=== PATIENT | male | born 1985 | race Caucasian/White ===

== ENCOUNTER 2024-01-20 12:55 | Inpatient (IN) ==
[2024-01-20 14:00] LABS: Basophils # (auto) 0.04 K/uL (0.00-0.20); Basophils % (auto) 0.6 %; Eosinophils # (auto) 0.03 K/uL (0.00-0.50); Eosinophils % (auto) 0.5 %; Hematocrit (blood only) 35.4 % (42.0-52.0); Hemoglobin 12.5 g/dl (14.0-18.0); Immature Granulocytes # (auto) 0.03 K/uL (0.01-0.20); Immature Granulocytes % (auto) 0.5 %; Lymphocytes # (auto) 1.15 K/uL (1.20-3.40); Lymphocytes % (auto) 17.3 %; Mean Corpuscular Hemoglobin 29.8 pg (25.0-34.0); Mean Corpuscular Hgb Conc 35.3 g/dL (32.0-36.0); Mean Corpuscular Volume 84.3 fL (80.0-100.0); Mean Platelet Volume 9.2 fL (9.4-12.4); Monocytes # (auto) 0.86 K/uL (0.11-0.59); Neutrophils # (auto) 4.53 K/uL (1.40-6.50); Neutrophils % (auto) 68.1 %; Platelet Count 205 K/uL (130-400); RDW Coefficient of Variation 11.9 % (11.5-14.5); White Blood Count 6.64 K/ul (4.8-10.8)
[2024-01-20 14:08] LABS: Albumin Globulin Ratio 1.9 (0.9-2); Albumin Level 4.9 gm/dl (3.4-5.0); BUN Creatinine Ratio 7.1 (10-20); Calcium 9.9 mg/dl (8.6-10.3); Creatinine Clr Calc Pharmacy 89.5 ml/min; Est GFR (African American) 95.7 ml/min; Est GFR (Non-African American) 82.6 ml/min; Globulin 2.6 gm/dl (2.5-4.0); Potassium 3.5 mmol/L (3.5-5.1); Total Protein 7.5 gm/dl (6.0-8.3)
--- NOTE | 2024-01-20 14:20 | Emergency Department Note ---
Impression & Plan Seizure, ETOH abuse, Benzodiazepine dependence, Fever ED Provider Note NAME: SHAHRIAR LABOY AGE: 38 SEX: M : 1985 ARRIVES VIA: Walk-In INFORMANT: Patient ED PROVIDER(S): Ward Cole DO CHIEF COMPLAINT: Seizure HPI: Patient is a 38-year-old male who presents to the ER for seizure. Patient notes that he used benzos as well as alcohol. He was drinking about 10 beers a day. He notes he is only taken about 4 mg of Klonopin but per report from outside facility notes he was using 6-8 a day. He has been at [facility] for the past week. He had a witnessed seizure. They brought him in. He was titrating down on benzodiazepines when this occurred. He admits to mild neck soreness and a little bit of a headache. No cough or congestion. No chest pain or shortness of breath. No belly pain. No nausea, vomiting, or diarrhea. No dysuria but admits to urgency and frequency. ADDITIONAL HISTORY OBTAINED: Per HPI Chronic Medical/Social Conditions Affecting Care: Per HPI PAST MEDICAL HISTORY:See Below PAST SURGICAL HISTORY:See Below FAMILY HISTORY:See Below SOCIAL HISTORY:See Below HOME MEDICATIONS:See Below ALLERGIES:See Below VITALS:See Below PHYSICAL EXAMINATION: GENERAL: Sitting up in bed, alert, well appearing, well nourished, no distress, non-toxic EYE EXAM: normal conjunctiva. OROPHARYNX: no exudate, no erythema, lips, buccal mucosa, and tongue normal and mucous membranes are moist NECK: supple, no nuchal rigidity, no adenopathy, non-tender LUNGS: Clear to auscultation. Normal chest wall mechanics HEART: no murmurs, S1 normal and S2 normal ABDOMEN: abdomen soft, non-tender, normo-active bowel sounds, no masses, no rebound or guarding. BACK: Back is symmetrical on inspection and there is no deformity, no midline tenderness, no CVA tenderness. SKIN: no rashes and no bruising UPPER EXTREMITIES: upper extremities are grossly normal. LOWER EXTREMITIES: No pitting edema. NEURO EXAM: Normal sensorium, cranial nerves II-XII grossly intact, normal speech, no gross weakness of arms, no gross weakness of legs. MEDICAL DECISION MAKING: Patient is a 38-year-old male who presents ER for a seizure from [facility]. He notes he was using benzodiazepines and alcohol. He was on a taper. IV was established blood work was obtained. Upon arrival he is found to be febrile and tachycardic. Labs showed no significant leukocytosis and a mild anemia 12. BMP with mild hyponatremia at 130. LFTs with mild transaminitis. T. bili was unremarkable. Troponin was negative. Pro-Jamie was normal. Urine was clean. Viral panel was negative. With the fever and his complaint of neck pain earlier in the seizure and the mild headache LP was performed. He was given 2 g of Rocephin. LP showed only 1 white cell and 2 reds. This not consistent with meningitis. Do favor that the seizures are likely withdrawal but cannot be certain. He was given fluids thiamine and folate. Updated bedside. Discussed case with the hospitalist for further evaluation management treatment. CT of the head was negative. He was given 2 separate doses of Valium for the hypertension. Consults/Care Managements Discussions: Per [facility] Triage Nursing notes reviewed. Limited review of prior medical records performed Vital Signs: reviewed and remarkable for HTN, tachy Differential diagnosis: Differential diagnosis includes etiologies such as sepsis, UTI, pneumonia, metabolic, electrolyte abnormalities, cardiac sources, intracerebral event, toxicologic, neurological, as well as others were entertained. ER treatment provided: See below Diagnostics interpreted by me include EKG and cardiac monitoring as listed below: -Cardiac Monitoring: An order was placed for continuous cardiac monitoring. The monitor shows a rate of 70 with sinus rhythm. -ECG: Sinus rhythm rate of 96 Normal axis No PVCs 452 QTc -Laboratory studies:Interpreted by me as stated above in MDM and shown below. Imaging studies: Xrays: As interpreted by me: Portable AP upright 1 view of the chest shows no focal infiltrate CTs show: CT head was negative Procedures:none Critical Care: None Past Med/Surg History Problem List (Updated 01/20/24 @ 18:21 by Ward Cole DO) Fever (Acute) Benzodiazepine dependence (Acute) ETOH abuse (Acute) Seizure (Acute) Social History Smoking Status: Never smoker Preferred Language: Greenlandic Feels Safe at Home: No Allergies Allergies Allergy/AdvReac Type Severity Reaction Status Date / Time No Known Allergies Allergy Unverified 01/20/24 17:59 Results & Data (ED) Vital Signs Vital Signs - 24 hr 01/20/24 13:01 01/20/24 13:26 01/20/24 13:36 Temperature 37.9 C H Temperature Source Oral Pulse Rate 105 H 115 H 97 H Respiratory Rate 20 17 Respiratory Effort / Characteristics Non-Labored Spontaneous Respiratory Depth Normal Respiratory Pattern Regular Blood Pressure 142/94 H Blood Pressure Mean 110 Pulse Oximetry 99 100 Oxygen Delivery Method Room Air Room Air Sepsis Recent Fever Within 48 Hours No Sepsis New/Unexplained Change in Mental Status N/A Sepsis Action Taken by Nursing No Action Required 01/20/24 13:51 01/20/24 14:00 01/20/24 14:30 Temperature Temperature Source Pulse Rate 91 H 89 98 H Respiratory Rate 13 16 18 Respiratory Effort / Characteristics Respiratory Depth Respiratory Pattern Blood Pressure 141/94 H Blood Pressure Mean 109 Pulse Oximetry 100 100 93 Oxygen Delivery Method Room Air Room Air Room Air Sepsis Recent Fever Within 48 Hours Sepsis New/Unexplained Change in Mental Status Sepsis Action Taken by Nursing 01/20/24 14:31 01/20/24 14:35 01/20/24 15:00 Temperature 36.9 C Temperature Source Oral Pulse Rate 89 Respiratory Rate 18 Respiratory Effort / Characteristics Respiratory Depth Respiratory Pattern Blood Pressure 148/108 H Blood Pressure Mean 110 Pulse Oximetry 100 Oxygen Delivery Method Room Air Sepsis Recent Fever Within 48 Hours Sepsis New/Unexplained Change in Mental Status Sepsis Action Taken by Nursing 01/20/24 15:01 01/20/24 15:23 01/20/24 15:25 Temperature 37.5 C Temperature Source Oral Pulse Rate Respiratory Rate Respiratory Effort / Characteristics Respiratory Depth Respiratory Pattern Blood Pressure 147/98 H 156/101 H Blood Pressure Mean 106 121 Pulse Oximetry Oxygen Delivery Method Sepsis Recent Fever Within 48 Hours Sepsis New/Unexplained Change in Mental Status Sepsis Action Taken by Nursing 01/20/24 15:30 01/20/24 15:31 01/20/24 15:33 Temperature Temperature Source Pulse Rate 97 H 83 Respiratory Rate 16 16 Respiratory Effort / Characteristics Respiratory Depth Respiratory Pattern Blood Pressure 144/99 H Blood Pressure Mean 107 Pulse Oximetry 99 100 Oxygen Delivery Method Room Air Room Air Sepsis Recent Fever Within 48 Hours Sepsis New/Unexplained Change in Mental Status Sepsis Action Taken by Nursing 01/20/24 15:45 01/20/24 16:30 01/20/24 16:42 Temperature Temperature Source Pulse Rate 103 H 84 86 Respiratory Rate 16 19 13 Respiratory Effort / Characteristics Respiratory Depth Respiratory Pattern Blood Pressure 152/97 H Blood Pressure Mean 115 Pulse Oximetry 93 100 100 Oxygen Delivery Method Room Air Room Air Room Air Sepsis Recent Fever Within 48 Hours Sepsis New/Unexplained Change in Mental Status Sepsis Action Taken by Nursing 01/20/24 17:00 01/20/24 17:01 01/20/24 17:39 Temperature Temperature Source Pulse Rate 71 69 Respiratory Rate 15 Respiratory Effort / Characteristics Respiratory Depth Respiratory Pattern Blood Pressure 163/134 H Blood Pressure Mean 141 Pulse Oximetry 100 Oxygen Delivery Method Room Air Sepsis Recent Fever Within 48 Hours Sepsis New/Unexplained Change in Mental Status Sepsis Action Taken by Nursing Laboratory Data 01/20/24 13:14 01/20/24 13:14 Lab Results 01/20/24 01/20/24 01/20/24 Range/Units 13:14 14:38 14:41 WBC 6.64 (4.8-10.8) K/ul RBC 4.20 L (4.70-6.10) M/uL Hgb 12.5 L (14.0-18.0) g/dl Hct 35.4 L (42.0-52.0) % MCV 84.3 (80.0-100.0) fL MCH 29.8 (25.0-34.0) pg MCHC 35.3 (32.0-36.0) g/dL RDW Std Deviation 36.0 L (36.4-46.3) fL RDW Coeff of Edda 11.9 (11.5-14.5) % Plt Count 205 (130-400) K/uL MPV 9.2 L (9.4-12.4) fL Immature Gran % (Auto) 0.5 % Neut % (Auto) 68.1 % Lymph % (Auto) 17.3 % Ida % (Auto) 13.0 % Eos % (Auto) 0.5 % Baso % (Auto) 0.6 % Neut # (Auto) 4.53 (1.40-6.50) K/uL Lymph # (Auto) 1.15 L (1.20-3.40) K/uL Ida # (Auto) 0.86 H (0.11-0.59) K/uL Eos # (Auto) 0.03 (0.00-0.50) K/uL Baso # (Auto) 0.04 (0.00-0.20) K/uL Immature Gran # (Auto) 0.03 (0.01-0.20) K/uL Sodium 130 L (136-145) mmol/L Potassium 3.5 (3.5-5.1) mmol/L Chloride 95 L (98-107) mmol/L Carbon Dioxide 25 (21-32) mmol/L Anion Gap 10 (3-11) BUN 8 (6-23) mg/dl Creatinine 1.13 (0.6-1.4) mg/dl Est Cr Clr Drug Dosing 89.5 ml/min Est GFR ( Amer) 95.7 ml/min Est GFR (Non-Af Amer) 82.6 ml/min BUN/Creatinine Ratio 7.1 L (10-20) Glucose 127 H (70-99(Fasting)) mg/dl Lactate 0.8 (0.4-2.0) mmol/L Calcium 9.9 (8.6-10.3) mg/dl Total Bilirubin 1.0 (0.2-1.0) mg/dl AST 72 H (13-39) U/L ALT 108 H (7-52) U/L Alkaline Phosphatase 51 (34-104) U/L Troponin I High Sens 4.5 (0-20) pg/ml Total Protein 7.5 (6.0-8.3) gm/dl Albumin 4.9 (3.4-5.0) gm/dl Globulin 2.6 (2.5-4.0) gm/dl Albumin/Globulin Ratio 1.9 (0.9-2) Procalcitonin 0.02 (0-0.5) ng/ml Urine Color Urine Appearance (Clear) Urine pH (4.5-7.5) Ur Specific [place] (1.000-1.030) Urine Protein (Negative) Urine Glucose (UA) (Negative) Urine Ketones (Negative) Urine Blood (Negative) Urine Nitrite (Negative) Urine Bilirubin (Negative) Urine Urobilinogen (Negative) Ur Leukocyte Esterase (Negative) Urine WBC (Auto) (0-5) /hpf Urine RBC (Auto) (0-2) /hpf U Hyaline Cast (Auto) (0-2) /lpf U Epithel Cells (Auto) (0-2) /hpf Urine Bacteria (Auto) (None Seen) Fluid Comment CSF Appearance CSF Color Xanthrochromic CSF WBC (0-5) CSF RBC (0-) CSF Cell Count Tube # CSF Chemistry Tube # CSF Glucose (40-70) mg/dl CSF Total Protein (15-45) mg/dl CSF C.neoform/gat PCR (NotDetected) CSF CMV DNA (PCR) (NotDetected) CSF Enterovirus (PCR) (NotDetected) CSF E. coli K1 (PCR) (NotDetected) CSF H. influenzae (PCR) (NotDetected) CSF HSV I (PCR) (NotDetected) CSF HSV II (PCR) (NotDetected) CSF HHV 6 (PCR) (NotDetected) CSF L.monocytogenes PCR (NotDetected) CSF N. meningitidis PCR (NotDetected) CSF Parechovirus (PCR) (NotDetected) CSF S. agalactiae (PCR) (NotDetected) CSF S. pneumoniae (PCR) (NotDetected) CSF VZV DNA (PCR) (NotDetected) Ethyl Alcohol mg/dL < 10.0 (<10.0) mg/dl Adenovirus (PCR) Not Detected (NotDetected) B. pertussis DNA (PCR) Not Detected (NotDetected) B.parapertussis DNA PCR Not Detected (NotDetected) C. pneumoniae DNA (PCR) Not Detected (NotDetected) Coronavirus OC43 (PCR) Not Detected (NotDetected) Coronavirus HKU1 (PCR) Not Detected (NotDetected) Coronavirus 229E (PCR) Not Detected (NotDetected) SARS-CoV-2 (PCR) Not Detected (NotDetected) Coronavirus NL63 (PCR) Not Detected (NotDetected) Human Metapneumovir PCR Not Detected (NotDetected) Influenza Type A (PCR) Not Detected (NotDetected) Influenza Type B (PCR) Not Detected (NotDetected) M. pneumoniae (PCR) Not Detected (NotDetected) Parainfluenza 1 (PCR) Not Detected (NotDetected) Parainfluenza 2 (PCR) Not Detected (NotDetected) Parainfluenza 3 (PCR) Not Detected (NotDetected) Parainfluenza 4 (PCR) Not Detected (NotDetected) RSV (PCR) Not Detected (NotDetected) Entero/Rhino (PCR) Not Detected (NotDetected) 01/20/24 01/20/24 Range/Units 15:00 15:58 WBC (4.8-10.8) K/ul RBC (4.70-6.10) M/uL Hgb (14.0-18.0) g/dl Hct (42.0-52.0) % MCV (80.0-100.0) fL MCH (25.0-34.0) pg MCHC (32.0-36.0) g/dL RDW Std Deviation (36.4-46.3) fL RDW Coeff of Edda (11.5-14.5) % Plt Count (130-400) K/uL MPV (9.4-12.4) fL Immature Gran % (Auto) % Neut % (Auto) % Lymph % (Auto) % Ida % (Auto) % Eos % (Auto) % Baso % (Auto) % Neut # (Auto) (1.40-6.50) K/uL Lymph # (Auto) (1.20-3.40) K/uL Ida # (Auto) (0.11-0.59) K/uL Eos # (Auto) (0.00-0.50) K/uL Baso # (Auto) (0.00-0.20) K/uL Immature Gran # (Auto) (0.01-0.20) K/uL Sodium (136-145) mmol/L Potassium (3.5-5.1) mmol/L Chloride (98-107) mmol/L Carbon Dioxide (21-32) mmol/L Anion Gap (3-11) BUN (6-23) mg/dl Creatinine (0.6-1.4) mg/dl Est Cr Clr Drug Dosing ml/min Est GFR ( Amer) ml/min Est GFR (Non-Af Amer) ml/min BUN/Creatinine Ratio (10-20) Glucose (70-99(Fasting)) mg/dl Lactate (0.4-2.0) mmol/L Calcium (8.6-10.3) mg/dl Total Bilirubin (0.2-1.0) mg/dl AST (13-39) U/L ALT (7-52) U/L Alkaline Phosphatase (34-104) U/L Troponin I High Sens (0-20) pg/ml Total Protein (6.0-8.3) gm/dl Albumin (3.4-5.0) gm/dl Globulin (2.5-4.0) gm/dl Albumin/Globulin Ratio (0.9-2) Procalcitonin (0-0.5) ng/ml Urine Color Dark Yellow Urine Appearance Clear (Clear) Urine pH 6.0 (4.5-7.5) Ur Specific [place] 1.009 (1.000-1.030) Urine Protein Trace H (Negative) Urine Glucose (UA) Negative (Negative) Urine Ketones Negative (Negative) Urine Blood Negative (Negative) Urine Nitrite Negative (Negative) Urine Bilirubin Negative (Negative) Urine Urobilinogen Negative (Negative) Ur Leukocyte Esterase Negative (Negative) Urine WBC (Auto) 0-5 (0-5) /hpf Urine RBC (Auto) 0-2 (0-2) /hpf U Hyaline Cast (Auto) 3-5 H (0-2) /lpf U Epithel Cells (Auto) 0-2 (0-2) /hpf Urine Bacteria (Auto) None Seen (None Seen) Fluid Comment CSF Appearance Clear CSF Color Colorless Xanthrochromic No xanthochromia CSF WBC 1 (0-5) CSF RBC 2 (0-) CSF Cell Count Tube # 3 CSF Chemistry Tube # 1 CSF Glucose 75 H (40-70) mg/dl CSF Total Protein 36.6 (15-45) mg/dl CSF C.neoform/gat PCR Not Detected (NotDetected) CSF CMV DNA (PCR) Not Detected (NotDetected) CSF Enterovirus (PCR) Not Detected (NotDetected) CSF E. coli K1 (PCR) Not Detected (NotDetected) CSF H. influenzae (PCR) Not Detected (NotDetected) CSF HSV I (PCR) Not Detected (NotDetected) CSF HSV II (PCR) Not Detected (NotDetected) CSF HHV 6 (PCR) Not Detected (NotDetected) CSF L.monocytogenes PCR Not Detected (NotDetected) CSF N. meningitidis PCR Not Detected (NotDetected) CSF Parechovirus (PCR) Not Detected (NotDetected) CSF S. agalactiae (PCR) Not Detected (NotDetected) CSF S. pneumoniae (PCR) Not Detected (NotDetected) CSF VZV DNA (PCR) Not Detected (NotDetected) Ethyl Alcohol mg/dL (<10.0) mg/dl Adenovirus (PCR) (NotDetected) B. pertussis DNA (PCR) (NotDetected) B.parapertussis DNA PCR (NotDetected) C. pneumoniae DNA (PCR) (NotDetected) Coronavirus OC43 (PCR) (NotDetected) Coronavirus HKU1 (PCR) (NotDetected) Coronavirus 229E (PCR) (NotDetected) SARS-CoV-2 (PCR) (NotDetected) Coronavirus NL63 (PCR) (NotDetected) Human Metapneumovir PCR (NotDetected) Influenza Type A (PCR) (NotDetected) Influenza Type B (PCR) (NotDetected) M. pneumoniae (PCR) (NotDetected) Parainfluenza 1 (PCR) (NotDetected) Parainfluenza 2 (PCR) (NotDetected) Parainfluenza 3 (PCR) (NotDetected) Parainfluenza 4 (PCR) (NotDetected) RSV (PCR) (NotDetected) Entero/Rhino (PCR) (NotDetected) Administered Medications Discontinued Medications Acetaminophen (Acetaminophen 325 Mg Tab) 650 mg PO NOW STA Stop: 01/20/24 14:25 Last Admin: 01/20/24 14:42 Dose: 650 mg Documented By: ETIENNE Diazepam (Diazepam 5 Mg/Ml 10ml Vial) 2.5 mg IV NOW STA Stop: 01/20/24 14:25 Last Admin: 01/20/24 14:42 Dose: 2.5 mg Documented By: ETIENNE Diazepam (Diazepam 5 Mg/Ml 10ml Vial) 2.5 mg IV NOW STA Stop: 01/20/24 15:31 Last Admin: 01/20/24 15:33 Dose: 2.5 mg Documented By: ETIENNE Thiamine HCl 100 mg/ Syringe 10 mls @ 2 mls/min IV NOW STA Stop: 01/20/24 14:21 Last Admin: 01/20/24 15:13 Dose: 2 mls/min Documented By: ETIENNE Folic Acid 1 mg/ Syringe 10 mls @ 5 mls/min IV NOW STA Stop: 01/20/24 14:18 Last Admin: 01/20/24 15:13 Dose: 5 mls/min Documented By: ETIENNE Sodium Chloride (Nss) 1,000 mls @ 999 mls/hr IV .Q1H1M ALOK Stop: 01/20/24 16:30 Last Admin: 01/20/24 16:21 Dose: 999 mls/hr Documented By: Infusion: 01/20/24 15:43 Dose: Infused Documented By: Admin: 01/20/24 14:42 Dose: 999 mls/hr Documented By: ETIENNE Imaging Data Radiologist's Impression: Head CT 01/20/24 14:[address] DOSE: 625.8 mGy.cm HISTORY: seizure TECHNIQUE: Multiaxial CT images of the head were performed without the use of intravenous contrast. Automated exposure control was utilized for this study. A dose lowering technique was utilized adhering to the principles of ALARA. Comparison: None. Findings: The paranasal sinuses and mastoid air cells are clear. The calvarium and skull base are intact. The ventricles and sulci are within normal limits. There is no mass, hematoma, midline shift, or acute infarct. Impression: No acute intracranial abnormality. ACT 112: Negative or not required by law. Electronically signed by: Arturo Abdullahi M.D. 01/20/2024 3:37 PM Chest X-Ray 01/20/24 15:49 XR chest 1V portable HISTORY: seizure COMPARISON: None. FINDINGS: The lungs are clear. Cardiac silhouette is normal in size. No pleural effusions. No pneumothorax. Mild dextroscoliosis of the mid thoracic spine. IMPRESSION: No acute process. ACT 112: Negative or not required by law. Electronically signed by: Arturo Abdullahi M.D. 01/20/2024 5:49 PM Discharge Plan Visit Data Chief Complaint: Seizure Stated Complaint: SEIZURE ED Provider: Ward Cole Discharge Problem: Seizure, ETOH abuse, Benzodiazepine dependence, Fever Forms Stand Alone Forms: [facility] Referrals Referrals: PCP,NO [Physician] - Discharge Problem: Fever Qualifiers: Fever type: unspecified Qualified Code(s): R50.9 - Fever, unspecified
[2024-01-20] MEDS: SODIUM CHLORIDE 0.9% 1,000 ML IV SCH (14:42)
[2024-01-20] MEDS: diazePAM 5 MG/ML 10ML VIAL IV STA ×2 (14:42→15:33)
[2024-01-20] MEDS: ACETAMINOPHEN 325 MG TAB PO STA (14:42)
[2024-01-20 14:50] LABS: Troponin I High Sensitivity 4.5 pg/ml (0-20)
[2024-01-20] MEDS: THIAMINE HCL 100 MG in SYRINGE 9 ML IV STA (15:13)
[2024-01-20] MEDS: FOLIC ACID 1 MG in SYRINGE 9.8 ML IV STA (15:13)
[2024-01-20 15:39] LABS: Appearance Urine Clear (Clear); Bacteria Urine Automated None Seen (None Seen); Bilirubin Urine Negative (Negative); Blood Urine Negative (Negative); Color Urine Dark Yellow; Epithelial Cell Urine Auto 0-2 /hpf (0-2); Glucose Urine UA Negative (Negative); Ketones Urine Negative (Negative); Leukocyte Esterase Urine Negative (Negative); Nitrite Urine Negative (Negative); Protein Urine Trace (Negative); RBC Urine Automated 0-2 /hpf (0-2); Specific Gravity Urine 1.009 (1.000-1.030); Urobilinogen Urine Negative (Negative); WBC Urine Automated 0-5 /hpf (0-5)
--- NOTE | 2024-01-20 15:39 | CT Scan Report ---
HEAD CT NONCONTRAST CT DOSE: 625.8 mGy.cm HISTORY: seizure TECHNIQUE: Multiaxial CT images of the head were performed without the use of intravenous contrast. A utomated exposure control was utilized for this study. A dose lowering technique was utilized adheri ng to the principles of ALARA. Comparison: None. Findings: The paranasal sinuses and mastoid air cells are clear. The calvarium and skull base are int act. The ventricles and sulci are within normal limits. There is no mass, hematoma, midline shift, or acute infarct. Impression: No acute intracranial abnormality. ACT 112: Negative or not required by law. Electronically signed by: Arturo Abdullahi M.D. 01/20/2024 3:37 PM
[2024-01-20 16:02] LABS: Adenovirus PCR Not Detected (NotDetected); Bordetella parapertussis PCR Not Detected (NotDetected); Bordetella pertussis PCR Not Detected (NotDetected); Chlamydia pneumoniae PCR Not Detected (NotDetected); Coronavirus 229E PCR Not Detected (NotDetected); Coronavirus CoV-2 (COVID19)PCR Not Detected (NotDetected); Coronavirus HKU1 PCR Not Detected (NotDetected); Coronavirus NL63 PCR Not Detected (NotDetected); Coronavirus OC43PCR Not Detected (NotDetected); Human Metapneumovirus PCR Not Detected (NotDetected); Influenza A PCR Not Detected (NotDetected); Influenza B PCR Not Detected (NotDetected); Mycoplasma pneumoniae PCR Not Detected (NotDetected); Parainfluenza Virus 1 PCR Not Detected (NotDetected); Parainfluenza Virus 2 PCR Not Detected (NotDetected); Parainfluenza Virus 3 PCR Not Detected (NotDetected); Parainfluenza Virus 4 PCR Not Detected (NotDetected); Respiratory Syncytial VirusPCR Not Detected (NotDetected); Rhinovirus/Enterovirus PCR Not Detected (NotDetected)
[2024-01-20 16:32] LABS: Total Protein CSF 36.6 mg/dl (15-45)
[2024-01-20 16:40] LABS: Appearance CSF Clear; CSF Count Tube # 3; CSF Xanthrochromic No xanthochromia; Color CSF Colorless; Red Blood Cell CSF Manual 2 (0-); White Blood Cell CSF Manual 1 (0-5)
--- NOTE | 2024-01-20 17:26 | History & Physical Report ---
Date of Service January 20, 2024 Assessment & Plan (1) Seizure: Plan: Seizure Suspected due to combination of tapering benzodiazepine chronic use and alcohol withdrawal Alcohol use of 10 drinks per day at baseline. Alcohol is negative on admission Per [facility] patient was taking 6-8 mg daily of Klonopin. Patient denies this Received diazepam 2.5 mg x 2 IV while in the ER LP without evidence of bacterial or viral meningitis. Bio fire negative Sodium 130, creatinine normal. AST/ALT mildly elevated in the setting of alcohol abuse. CMP trended, if rising and not normalizing can follow-up with right upper quadrant ultrasound Ativan on-call as needed for seizure if any signs of respiratory suppression, and end-tidal CO2 monitoring Chronic benzodiazepine dependence Has been taking clonazepam 1 mg 3 times daily for many years. This was abruptly stopped when he went into [facility]. He did receive Valium reportedly 3 upfront doses and then tapered, was also undergoing alcohol withdrawal at the same time Given underlying seizures and chronic many year dependence will reinstitute clonazepam 1 mg 3 times daily. If stable would taper this by no more than 0.5 mg/week Will need close follow-up. Recommend establishing with [facility]. Case management consulted to help facilitate Will also be placed on AWSS scoring due to alcohol intake, although suspect he is low risk overall of withdrawal at this point as he is 10 days out from last drink Transaminitis With history of alcohol use and recent seizure Has had some epigastric discomfort, but no pain with meals Right upper quadrant ultrasound is pending Patient does have a bronzing character to his skin, bilirubin is normal. Ferritin added to his lab panel DVT PPx Lovenox Diet Regular Code Full Dispo PCU 2/ seizure (2) ETOH abuse: (3) Benzodiazepine dependence: History of Present Illness Primary Care Provider: [facility] Irwin is a 38-year-old male with a past medical history of alcohol abuse who presented to the ER with a seizure. Patient has a history of benzodiazepine use and alcohol abuse. Had been taking 4 Klonopin per day, recently per facility no up to 6-8 Klonopin per day and drinking around 10 beers per day. He had been at [facility] when he had a witnessed seizure while down titrating benzodiazepines. LP: no leukocytosis, minimally elevated glucose, protein not significantly elevated Prior to admission was taking: Irwin is a 38-year-old male with a history of longstanding benzodiazepine use and history of alcohol abuse who presents after having a seizure at [facility]. He reports he was admitted to [facility] around a week and a half ago for alcohol and benzodiazepine use. He reports his last drink was 10 days ago, previously drank 10 drinks to 12 drinks daily although would sometimes drink more around 16-18 on a heavier night. He has also had many years of 1 mg clonazepam 3 times daily use. He stopped this abruptly when going at [facility]. He did receive 3 doses of frontloaded diazepam. He reports he was initially tremulous and sweaty with alcohol withdrawal but overall did okay through day 3 and 5. Today he had a feeling of twitching in his left face which then improved, returned to times and on the third total episode suddenly lost consciousness. He is did not remember what happened next other than waking up in the hospital. He has never had a seizure before. He did have a little neck stiffness, LP was normal. He has a headache after the LP did not have a preceding headache. Does have a history of migraines. Denies fever, chills, sweats in the last few days does endorse sweats when he initially went through alcohol withdrawal. Has had some epigastric/right upper quadrant discomfort which she thinks is gas pain, this is not associated with meals. He has had some very gassy soft stools which are not completely liquid. No bloody stools or black stools. No chest pain or chest pressure. He does not use tobacco products Denies recreational drug use Code full code Does want a be set up with the [facility] PCP, and is willing to follow-up with [facility] for additional care and benzodiazepine taper as outpatient Allergies Allergy/AdvReac Type Severity Reaction Status Date / Time No Known Allergies Allergy Unverified 01/20/24 17:59 Past Med/Surg History Problem List Benzodiazepine dependence ETOH abuse Seizure Social History Smoking Status: Never smoker Preferred Language: Chinese Feels Safe at Home: No Physical Exam Physical Exam: General: A&Ox3. NAD. Cooperative. HEENT: Atraumatic, normocephalic. Vision/hearing intact Pulm: CTAB A&P. -wheezes, -rales, -rhonchi. Symmetrical chest rise. No increased work of breathing. No respiratory distress. Cardiac: RRR, -mrg. Radial pulses intact and symmetrical. Abdominal: Nontender, nondistended, soft. BS present. Ext: warm, dry. Moves all extremities equally. Skin tone with some bronzing Results & Data Results & Data Vital Signs (Past 12 Hours) Vital Signs Temp Pulse Resp BP Pulse Ox O2 Del Method 01/20/24 17:01 163/134 H 01/20/24 17:00 71 15 100 Room Air 01/20/24 16:42 86 13 100 Room Air 01/20/24 16:30 84 19 152/97 H 100 Room Air 01/20/24 15:45 103 H 16 93 Room Air 01/20/24 15:33 83 16 100 Room Air 01/20/24 15:31 144/99 H 01/20/24 15:30 97 H 16 99 Room Air 01/20/24 15:25 156/101 H 01/20/24 15:23 37.5 C 01/20/24 15:01 147/98 H 01/20/24 15:00 89 18 100 Room Air 01/20/24 14:35 36.9 C 01/20/24 14:31 148/108 H 01/20/24 14:30 98 H 18 93 Room Air 01/20/24 14:00 89 16 141/94 H 100 Room Air 01/20/24 13:51 91 H 13 100 Room Air 01/20/24 13:36 97 H 17 100 Room Air 01/20/24 13:26 37.9 C H 115 H 20 142/94 H 99 Room Air 01/20/24 13:01 105 H PG Care Time/CCT Total # of Minutes Spent Total Time Spent with Patient: Total time spent is greater than 50% in coordination of care (as documented) at patient's floor/unit and/or counseling patient: Coding Level of Care Code 14144 INT INP/OBS CARE 3/75MIN Diagnoses Seizure R56.9 ETOH abuse F10.10 Benzodiazepine dependence F13.20
[2024-01-20 17:37] LABS: Cryptococcus neoformans/ga PCR Not Detected (NotDetected); Cytomegalovirus PCR Not Detected (NotDetected); Enterovirus PCR Not Detected (NotDetected); Escherichia coli K1 PCR Not Detected (NotDetected); Haemophilius influenzae PCR Not Detected (NotDetected); Herpes Simplex Virus 1 PCR Not Detected (NotDetected); Herpes Simplex Virus 2 PCR Not Detected (NotDetected); Human Herpes Virus 6 PCR Not Detected (NotDetected); Human Parechovirus PCR Not Detected (NotDetected); Listeria monocytogenes PCR Not Detected (NotDetected); Neisseria meningitidis PCR Not Detected (NotDetected); Streptococcus agalactiae PCR Not Detected (NotDetected); Streptococcus pneumoniae PCR Not Detected (NotDetected); Varicella Zoster Virus PCR Not Detected (NotDetected)
[2024-01-20] MEDS ORDERED: Ativan IV Alcohol Withdrawal--Active Protocol IV PRN (17:40)
[2024-01-20] MEDS ORDERED: LORazepam 2 MG/1 ML VIAL IV PRN ×4 (17:40→17:47)
[2024-01-20] MEDS ORDERED: Patient's ALLERGY Info needs ENTERED STA (17:48)
--- NOTE | 2024-01-20 17:51 | XRay Report ---
XR chest 1V portable HISTORY: seizure COMPARISON: None. FINDINGS: The lungs are clear. Cardiac silhouette is normal in size. No pleural effusions. No pneumot horax. Mild dextroscoliosis of the mid thoracic spine. IMPRESSION: No acute process. ACT 112: Negative or not required by law. Electronically signed by: Arturo Abdullahi M.D. 01/20/2024 5:49 PM
[2024-01-20 18:53] LABS: Ferritin 530.4 ng/ml (8-388)
--- NOTE | 2024-01-20 18:59 | Ultrasound Report ---
ABDOMINAL ULTRASOUND, RIGHT UPPER QUADRANT HISTORY: transaminitis, RUQ discomfort. COMPARISON: None. FINDINGS: Pancreas: The pancreatic tail is obscured by overlying bowel gas. The remaining portions of the pancr eas are within normal limits. Liver: The liver is echogenic consistent with fatty change. The main portal vein is patent. 20 cm in length. Gallbladder: No gallbladder wall thickening. No gallstones. CBD: 5.7 mm. Right kidney: No hydronephrosis. IMPRESSION: 1. Normal gallbladder. No gallstones. 2. Hepatomegaly demonstrating fatty change. ACT 112: Negative or not required by law. Electronically signed by: Arturo Abdullahi M.D. 01/20/2024 6:58 PM
[2024-01-20] MEDS: MULTI-VITAMIN INFUSION 10 ML, THIAMINE HCL 100 MG, FOLIC ACID 1 MG in SODIUM CHLORIDE 0... IV ONE (19:07)
--- NOTE | 2024-01-20 19:52 | Electrocardiogram Report ---
Test Reason : Blood Pressure : */* mmHG Vent. Rate : 96 BPM Atrial Rate : 96 BPM P-R Int : 182 ms QRS Dur : 82 ms QT Int : 358 ms P-R-T Axes : 36 40 45 degrees QTcB Int : 452 ms Normal sinus rhythm Normal ECG No previous ECGs available Confirmed by Pavel Odonnell ([id number]) on 01/20/2024 7:51:47 PM Referred By: Confirmed By: Pavel Odonnell
[2024-01-20] MEDS: clonazePAM 1 MG TAB PO SCH (20:11)
[2024-01-20] MEDS: BUTALBITAL/ACETAMIN/CAFFEINE TAB PO STA (21:02)
[2024-01-21] MEDS: clonazePAM 1 MG TAB PO ONE (00:48)
[2024-01-21] MEDS: clonazePAM 0.5 MG TAB PO ONE (01:00)
[2024-01-21 06:46] LABS: Basophils # (auto) 0.05 K/uL (0.00-0.20); Basophils % (auto) 0.9 %; Eosinophils # (auto) 0.07 K/uL (0.00-0.50); Eosinophils % (auto) 1.2 %; Hematocrit (blood only) 35.2 % (42.0-52.0); Immature Granulocytes # (auto) 0.02 K/uL (0.01-0.20); Immature Granulocytes % (auto) 0.3 %; Lymphocytes # (auto) 1.72 K/uL (1.20-3.40); Lymphocytes % (auto) 29.5 %; Mean Corpuscular Hemoglobin 29.6 pg (25.0-34.0); Mean Corpuscular Hgb Conc 34.1 g/dL (32.0-36.0); Mean Corpuscular Volume 86.9 fL (80.0-100.0); Mean Platelet Volume 9.4 fL (9.4-12.4); Monocytes # (auto) 0.91 K/uL (0.11-0.59); Monocytes % (auto) 15.6 %; Neutrophils # (auto) 3.06 K/uL (1.40-6.50); Neutrophils % (auto) 52.5 %; Platelet Count 199 K/uL (130-400); RDW Standard Deviation 38.6 fL (36.4-46.3); Red Blood Count 4.05 M/uL (4.70-6.10); White Blood Count 5.83 K/ul (4.8-10.8)
[2024-01-21 07:04] LABS: BUN Creatinine Ratio 5.8 (10-20); Calcium 9.1 mg/dl (8.6-10.3); Creatinine Clr Calc Pharmacy 107.5 ml/min; Est GFR (African American) 107.1 ml/min; Est GFR (Non-African American) 92.4 ml/min; Potassium 3.8 mmol/L (3.5-5.1)
[2024-01-21] MEDS: ACETAMINOPHEN 325 MG TAB PO PRN (08:33)
[2024-01-21] MEDS: clonazePAM 0.5 MG TAB PO SCH (08:33)
[2024-01-21] MEDS: FOLIC ACID 1 MG TAB PO SCH (08:33)
[2024-01-21] MEDS: THIAMINE HCL 100 MG TAB PO SCH (08:33)
[2024-01-21] MEDS ORDERED: BACLOFEN 10 MG TAB PO SCH (12:15)
[2024-01-21] MEDS: BACLOFEN 10 MG TAB PO SCH (13:13)
--- NOTE | 2024-01-21 15:47 | Hospitalist Progress Note ---
Date of Service January 21, 2024 Assessment & Plan (1) Seizure: Plan: 38-year-old man who was in rehab at [facility] for alcohol and benzodiazepine dependence who was admitted with a withdrawal seizure. in the ED he had a slight elevation of his temperature so had lumbar puncture which was negative for any evidence of meningitis. Head CT was negative. He has had no further seizures. Last alcohol drink was well over a week ago should be out of the window for alcohol withdrawal, however, he has been taking clonazepam 2 to 3 mg/day for many years this had also been stopped after a very short 3-day Valium taper which then precipitated the seizure. withdrawal seizurecontinue clonazepam at usual dose 1 mg p.o. 3 times daily, this will need to be tapered slowly over weeks in order to do safely. I asked him to reschedule his appointment with psychiatrist who is taking over care after his previous psychiatrist retired. Ideally if he could be seen within 1 to 2 weeks we could begin tapering clonazepam at discharge and his psychiatrist could continue this taper Moderate hyponatremia sodium of 130 following the seizure, resolved normal today there is no evidence of significant withdrawal at this point on his 1 mg 3 times daily clonazepam mild elevation of AST ALT and fatty liver ultrasound consistent with alcoholic fatty liver disease - plans abstinence from alcohol depression and anxiety - unfortunately vilazodone not on formulary and his supply is at [facility]. I asked if he could help arrange a family member or friend to retrieve his belongings and meds as he does not plan to go back. disposition warrants 24 hours of observation to make sure seizure-free could discharge in the morning if appropriate follow-up plan is established (2) ETOH abuse: (3) Benzodiazepine dependence: Admission and Anticipated Discharge Date Admission Date: January 20, 2024 Subjective feels anxious and misses his antidepressant (which is not on formulary), recalls prodrome to seizure with left side of face twitching prior to seizure which he can't remember, then woke up with the medics states taking 3-4 mg of clonazepam per day for many years. At rehab had 3-day valium taper then none, continued to have withdrawal symptoms treated with other meds Physical Exam 2 Physical Exam: PHYSICAL EXAMINATION Last 24h vital signs reviewed, see documentation in flowsheet General: comfortable appearing, no distress HEENT: Normocephalic, atraumatic, pupils round and equal, sclerae anicteric, no conjunctival injection, moist mucus membranes Lungs: Normal respiratory effort Heart: deferred Abdomen: Soft, nondistended. Extremities: Warm, dry, well-perfused. No extremity edema. skin: no diaphoresis or rash Neuro: Alert and oriented x 4, face symmetric, moves 4 extremities well, Not tremulous Psych: anxious mood, Normal affect and behavior Results & Data Results & Data Vital Signs (Past 12 Hours) Vital Signs Temp Pulse Pulse Resp BP Pulse Ox O2 Del Method 01/21/24 11:34 37.0 C 74 17 145/86 H 74 L Room Air 01/21/24 08:09 36.8 C 72 18 132/84 100 Room Air 01/21/24 08:00 80 Laboratory Results 01/21/24 06:04 01/21/24 06:04 PG Care Time/CCT Total # of Minutes Spent Total Time Spent with Patient: Total time spent is greater than 50% in coordination of care (as documented) at patient's floor/unit and/or counseling patient: Coding Level of Care Code 44820 SUB INP/OBS CARE 2/35MIN Diagnoses Seizure R56.9 ETOH abuse F10.10 Benzodiazepine dependence F13.20
[2024-01-21] MEDS: VILAZODONE HCL PO SCH (21:35)
[2024-01-21] MEDS: DICLOFENAC SOD 1% GEL 100 GM TUBE EXT PRN (23:48)
[2024-01-22 03:43] VITALS: RESP 16
[2024-01-22 07:29] VITALS: TEMP 98.4
[2024-01-22 07:55] LABS: Basophils # (auto) 0.05 K/uL (0.00-0.20); Eosinophils # (auto) 0.09 K/uL (0.00-0.50); Eosinophils % (auto) 1.8 %; Hematocrit (blood only) 35.4 % (42.0-52.0); Hemoglobin 12.4 g/dl (14.0-18.0); Immature Granulocytes # (auto) 0.02 K/uL (0.01-0.20); Immature Granulocytes % (auto) 0.4 %; Lymphocytes # (auto) 1.62 K/uL (1.20-3.40); Lymphocytes % (auto) 31.6 %; Mean Corpuscular Hemoglobin 29.9 pg (25.0-34.0); Mean Corpuscular Volume 85.3 fL (80.0-100.0); Mean Platelet Volume 9.3 fL (9.4-12.4); Monocytes # (auto) 0.86 K/uL (0.11-0.59); Monocytes % (auto) 16.8 %; Neutrophils # (auto) 2.49 K/uL (1.40-6.50); Neutrophils % (auto) 48.4 %; Platelet Count 198 K/uL (130-400); RDW Coefficient of Variation 11.8 % (11.5-14.5); RDW Standard Deviation 36.7 fL (36.4-46.3); Red Blood Count 4.15 M/uL (4.70-6.10); White Blood Count 5.13 K/ul (4.8-10.8)
[2024-01-22 08:10] LABS: BUN Creatinine Ratio 5.7 (10-20); Calcium 9.7 mg/dl (8.6-10.3); Creatinine Clr Calc Pharmacy 103.5 ml/min; Est GFR (African American) 103.4 ml/min; Est GFR (Non-African American) 89.2 ml/min; Potassium 3.7 mmol/L (3.5-5.1)
[2024-01-22 10:08] LABS: Hep B Surface Ag with confirm Negative (Negative)
[2024-01-22 10:13] LABS: Hep C Ab Rflx HepCQuant RNA Negative (Negative)
[2024-01-22 11:18] VITALS: BP 136/83; PULSE 76; O2SAT 99
[2024-01-22 12:22] LABS: Hepatitis A Antibody IgM NON-REACTIVE (NON-REACTIVE); Hepatitis B Core Antibody IgM NON-REACTIVE (NON-REACTIVE)
[2024-01-22] MEDS: BUTALBITAL/ACETAMIN/CAFFEINE TAB PO STA (13:01)
[2024-01-22] MEDS: SODIUM CHLORIDE 0.9% 1,000 ML IV ONE (13:07)
--- NOTE | 2024-01-22 17:30 | Discharge Summary ---
Discharge Summary Date of Service January 22, 2024 Principal Dx & Hospital Course #1 = Principal Diagnosis (1) Seizure: 38-year-old man who was in rehab at [facility] for alcohol and benzodiazepine dependence who was admitted with a withdrawal seizure. in the ED he had a slight elevation of his temperature so had lumbar puncture which was negative for any evidence of meningitis. CSF culture and Gram stain resulted negative. Head CT was negative. He has had no further seizures. Last alcohol drink was well over a week ago should be out of the window for alcohol withdrawal, however, he has been taking clonazepam 2 to 3 mg/day for many years this had also been stopped after a very short 3-day Valium taper which then precipitated the seizure. withdrawal seizurecontinued clonazepam at usual dose 1 mg p.o. 3 times daily While in the hospital and had no seizures and no symptoms of withdrawal. this will need to be tapered slowly over weeks in order to do safely. His psychiatrist recently retired and is establishing with a new physician Dr Smyth in [place], appointment had to be rescheduled because he was in the rehab program. We scheduled follow-up appointment for 1 week from now - for now decrease clonazepam to 0.5 mg in a.m., 1 mg midday, and 1 mg at bedtime I gave prescription for 7-day supply as he states he does not have any - assess clinical response and continue taper as an outpatient perhaps by half milligram total per day weekly or twice weekly - Irwin is unsure whether he can get totally off of this because he has had panic attacks refractory to other medications however he does want to get on a lower dose at least he did have some post LP type headache today which is worst when he is sitting up, resolves lying down, not very bad when he is up walking around. he has also has a history of migraine. - Hydrated today with 1 L normal saline, Fioricet for headache, advised rest good hydration and may use caffeine acetaminophen and/or NSAIDs at home for headache pain most likely will be resolving within 2 to 3 days. May need blood patch if not resolving or if severe intolerable headache develops - continue his usual migraine medications Moderate hyponatremia sodium of 130 following the seizure, resolved normalized mild elevation of AST ALT and fatty liver ultrasound consistent with alcoholic fatty liver disease - plans abstinence from alcohol. today we discussed the effects of alcohol causing fatty liver and fortunately this can be completely reversible with abstinence depression and anxiety - continue vilazodone, also has anxiety and panic attacks as commended on above counseled alcohol cessation - he intends to stay abstinent is working with his family establishing follow up locally for substance use disorder we discussed option of MAT for alcoholism naltrexone, etc (2) ETOH abuse: (3) Benzodiazepine dependence: Notes For Next Care Provider planning slower taper of clonazepam since he did fail rapid detox and had withdrawal seizure leading to this admission Medication Changes From Visit tapering clonazepam as discussed above Admission HPI Per Admitting Provider Irwin is a 38-year-old male with a past medical history of alcohol abuse who presented to the ER with a seizure. Patient has a history of benzodiazepine use and alcohol abuse. Had been taking 4 Klonopin per day, recently per facility no up to 6-8 Klonopin per day and drinking around 10 beers per day. He had been at [facility] when he had a witnessed seizure while down titrating benzodiazepines. LP: no leukocytosis, minimally elevated glucose, protein not significantly elevated Prior to admission was taking: Irwin is a 38-year-old male with a history of longstanding benzodiazepine use and history of alcohol abuse who presents after having a seizure at [facility]. He reports he was admitted to [facility] around a week and a half ago for alcohol and benzodiazepine use. He reports his last drink was 10 days ago, previously drank 10 drinks to 12 drinks daily although would sometimes drin k more around 16-18 on a heavier night. He has also had many years of 1 mg clonazepam 3 times daily use. He stopped this abruptly when going at [facility]. He did receive 3 doses of frontloaded diazepam. He reports he was initially tremulous and sweaty with alcohol withdrawal but overall did okay through day 3 and 5. Today he had a feeling of twitching in his left face which then improved, returned to times and on the third total episode suddenly lost consciousness. He is did not remember what happened next other than waking up in the hospital. He has never had a seizure before. He did have a little neck stiffness, LP was normal. He has a headache after the LP did not have a preceding headache. Does have a history of migraines. Denies fever, chills, sweats in the last few days does endorse sweats when he initially went through alcohol withdrawal. Has had some epigastric/right upper quadrant discomfort which she thinks is gas pain, this is not associated with meals. He has had some very gassy soft stools which are not completely liquid. No bloody stools or black stools. No chest pain or chest pressure. He does not use tobacco products Denies recreational drug use Code full code Does want a be set up with the [facility] PCP, and is willing to follow-up with [facility] for additional care and benzodiazepine taper as outpatient Discharge Exam PHYSICAL EXAMINATION Last 24h vital signs reviewed, see documentation in flowsheet General: comfortable appearing, no distress unchanged 01/21 excepting less anxious appearing HEENT: Normocephalic, atraumatic, pupils round and equal, sclerae anicteric, no conjunctival injection, moist mucus membranes Lungs: Normal respiratory effort Heart: deferred Abdomen: Soft, nondistended. Extremities: Warm, dry, well-perfused. No extremity edema. skin: no diaphoresis or rash Neuro: Alert and oriented x 4, face symmetric, moves 4 extremities well, Not tremulous Psych: Normal affect and behavior Discharge Plan Discharge Items Patient Disposition: Home - Self-Care Reason For Visit: BENZO/ETOH WITHDRAWAL SEIZURE Discharge Diagnosis: seizure related to benzodiazepine withdrawal Activity: Per Instructions section Non-emergency contact: Specialist Call non-emergency contact if: you have any medication questions and your symptoms worsen Follow-up/Referrals: Dillan Smyth MD [Outside Practitioners] - 01/28/24 12:30 pm [facility] [Primary Care Provider] - Diet: Regular Addtl Attending Provider Instructions: You had a withdrawal seizure related to withdrawal from clonazepam. There should not be a problem with recurrence in the absence of benzodiazepine or alcohol withdrawal. I recommend a slow clonazepam taper. This can be done over several weeks. Even if you ultimately have to stay on some amount of clonazepam, it will benefit your overall healt to get on a lower assembler bonding dose. For this week we'll decrease to 0.5 mg in AM, 1 mg midday, 1 mg at bedtime. Follow up with Dr. Smyth in one week as scheduled. He can assess your symptoms and continue tapering dose. LP was done in ER to rule out infection (meningitis) as a cause of seizure. Fortunately there was no sign of infection and CSF cultures were negative. You have some post-lumbar puncture headache. Usually this will resolve over several days. If it is nonresolving or becomes debilitating, treatment with blood patch is indicated. -staying hydrated with plenty of fluids and plenty of salt will help -rest is helpful - you will feel better lying down for awhile -caffeine combined with acetaminophen or NSAID like ibuprofen or naproxen is also helpful. Otherwise you can resume the medications that you usually take at home If you are eating and drinking well and on a healthy diet you probably don't need vitamins (multivitamin, B12, thiamine, folate), but these are commonly supplemented because people who are drinking a lot tend to get nutritional deficiencies. You can consider taking them for about two weeks and they are available over the counter at the drug store. It was a pleasure taking care of you in the hospital Kelly Montero MD Pending Studies at Discharge: No Stand-Alone Forms: My [facility] [employer], Smoking Cessation Medications and DC Order Prescriptions: New diclofenac sodium [Voltaren Arthritis Pain] 1 % Gel 2 g EXT QID PRNQty: 0 0RF clonazepam 0.5 mg tablet See Rx Instructions .ROUTE .COMPLEX Qty: 35 0RF Rx Instructions: 1 tab in AM, 2 tabs at midday and 2 tabs in evening candesartan 8 mg tablet 8 mg PO TID Qty: 1 0RF acetylcysteine 600 mg capsule 600 mg PO DAILY Qty: 1 0RF Continued cyanocobalamin (vitamin B-12) 1,000 mcg Tablet 1,000 mcg PO DAILY baclofen 10 mg Tablet 10 mg PO TID fluticasone propionate 50 mcg/actuation [place],Suspension 1 spray INTRANASAL DAILY Rx Instructions: administer into each nostril multivitamin Tablet 1 tab PO DAILY thiamine HCl (vitamin B1) 100 mg Tablet 100 mg PO DAILY folic acid 1 mg Tablet 1 mg PO DAILY vilazodone 40 mg Tablet 40 mg PO DAILY Rx Instructions: must administer with a meal/food acetaminophen 325 mg Tablet 650 mg PO QID PRN (Reason: PAIN OR HEADACHE) zolmitriptan 5 mg Tablet 5 mg PO BID PRN (Reason: Migraine Headache) Rx Instructions: take 1 tab at onset of headache; if no relief, may repeat 1 tab after at least 2 hrs; max = 2 tabs/24 hrs melatonin 5 mg Tablet 5 mg PO HS PRN (Reason: Sleep) acetaminophen-caffeine 500-65 mg Tablet 2 tab PO DAILY PRN (Reason: Headache) albuterol sulfate 90 mcg/actuation Hfa Aerosol Inhaler 8 mcg INHALATION QID PRN (Reason: ASTHMA) Discontinued candesartan 8 mg Tablet 8 mg PO TID acetylcysteine 600 mg Capsule 600 mg PO DAILY trazodone 50 mg Tablet 50 mg PO Q8 PRN (Reason: Anxiety) Discharge Orders: Discharge Order (Routine); Ordered 01/22/24 Ordered By: Kelly Montero Admission Data Admit Date/Time: 01/20/24 18:10 Attending Provider: Kelly Montero Admit Provider: Berny Hinds Primary Care Provider: Letha Smith Other Providers: Berny Hinds Other Interventions: Discharge Summary Assessment (RN) Last Done: 01/22/24 14:04 Hospital Stay Data Consultations 01/20/24 16:25 ED Decision to Admit Stat Diagnostic Imagining Performed 01/20/24 14:17 CT head/brain wo con Stat 01/20/24 17:40 US RUQ [US liver] Urgent Pending Results Patient Have Any Pending Studies at Discharge: No Discharge Instructions Given to Patient (Per Discharging Provider) You had a withdrawal seizure related to withdrawal from clonazepam. There should not be a problem with recurrence in the absence of benzodiazepine or alcohol withdrawal. I recommend a slow clonazepam taper. This can be done over several weeks. Even if you ultimately have to stay on some amount of clonazepam, it will benefit your overall healt to get on a lower assembler bonding dose. For this week we'll decrease to 0.5 mg in AM, 1 mg midday, 1 mg at bedtime. Follow up with Dr. Smyth in one week as scheduled. He can assess your symptoms and continue tapering dose. LP was done in ER to rule out infection (meningitis) as a cause of seizure. Fortunately there was no sign of infection and CSF cultures were negative. You have some post-lumbar puncture headache. Usually this will resolve over several days. If it is nonresolving or becomes debilitating, treatment with blood patch is indicated. -staying hydrated with plenty of fluids and plenty of salt will help -rest is helpful - you will feel better lying down for awhile -caffeine combined with acetaminophen or NSAID like ibuprofen or naproxen is also helpful. Otherwise you can resume the medications that you usually take at home If you are eating and drinking well and on a healthy diet you probably don't need vitamins (multivitamin, B12, thiamine, folate), but these are commonly supplemented because people who are drinking a lot tend to get nutritional deficiencies. You can consider taking them for about two weeks and they are available over the counter at the drug store. It was a pleasure taking care of you in the hospital Kelly Montero MD Total Time Total Time Spent Total Time Spent (In Minutes): I personally spent: 45 minutes today on clinical care activities including: reviewing chart notes and vital signs reviewing studies discussion with manager urgent care, arranging outpatient follow-up examining and counseling the patient writing orders, prescriptions, discharge instructions documentation Coding Level of Care Code 69924 INP/OBS DISCH >30 MIN Diagnoses Seizure R56.9 ETOH abuse F10.10 Benzodiazepine dependence F13.20
== END 2024-01-22 15:24 | disposition home or self-care (01) | DRG 897 ==
LOC: ED 12:55 → SUATTDRO 18:10 → 2S 18:10